=== PATIENT | female | born 1990 | race Hispanic/Latino ===

== ENCOUNTER 2019-10-08 05:50 | Day surgery (SDC) | payer OTHER ==
[2019-10-07 11:59] LABS: BASOPHILS % (AUTO) 0.2 % (0.0-5.0); HEMATOCRIT 45.2 % (36-48); LYMPHOCYTES % (AUTO) 10.9 % (21.0-51.0); MEAN CORPUSCULAR HEMOGLOBIN 26.3 pg (27.0-33.0); MEAN CORPUSCULAR HGB CONC 32.3 g/dL (32.0-36.0); MEAN CORPUSCULAR VOLUME 81.3 fL (79-99); MONOCYTES % (AUTO) 8.7 % (3.0-13.0); NEUTROPHILS % (AUTO) 77.9 % (40.0-77.0); PLATELET COUNT (AUTO) 225 K/uL (130-400); RED BLOOD CELL COUNT(AUTO) 5.56 MIL/uL (4.00-5.50); RED CELL DISTRIBUTION WIDTH 13.9 % (11.0-15.5); WHITE BLOOD COUNT (AUTO) 9.5 K/uL (4.8-10.8)
[2019-10-07 12:04] VITALS: BP 122/67
[2019-10-07 12:07] LABS: CREATININE 0.8 mg/dL (0.5-1.5); POTASSIUM 3.8 mmol/L (3.5-5.1)
[2019-10-07 12:12] LABS: INR 1.01 (0.85-1.15); PARTIAL THROMBOPLASTIN TIME 29.6 SEC (26.3-35.5); PROTHROMBIN TIME 10.6 SEC (9.6-11.6)
[2019-10-08] VITALS (24 sets, daily range): BP systolic 99–142; BP diastolic 43–89
[~2019-10-08] VITALS: Ht 167.6 cm; Wt 147.4 kg
[~2019-10-08 05:50] MED LIST: ASPI-555 PO; CETI-109 PO; CHOL500062 PO; ERGO500014 PO; FLUT16H NASAL; GABA-531 PO; IBUP-2077 PO; LORA10CA PO; SODIUM CHLORIDE 0.9% 1000ML 1,000 ML IV SCH
[2019-10-08] MEDS ORDERED: LIDOCAINE HCL 2% VISCOUS 15 ML UDCUP ONE (06:45)
[2019-10-08] MEDS ORDERED: LORA10TA7 PO (07:01)
[2019-10-08] MEDS ORDERED: DICY20TA11 PO (07:01)
[2019-10-08] MEDS ORDERED: GABA-531 PO (07:01)
[2019-10-08] MEDS ORDERED: POT CHLORIDE PO (07:01)
[2019-10-08] MEDS ORDERED: FURO40TA5 PO (07:01)
[2019-10-08] MEDS ORDERED: MONT10TA24 PO (07:01)
[2019-10-08] MEDS ORDERED: FLUO20CA34 PO (07:01)
[2019-10-08] MEDS ORDERED: ALPR0.5T8 PO (07:03)
[2019-10-08] MEDS ORDERED: ACET1TAB12 PO (07:03)
[2019-10-08] MEDS ORDERED: HYDR200T4 PO (07:08)
[2019-10-08] MEDS ORDERED: MIDAZOLAM HCL 1 MG/ML 2ML VIAL ONE (07:23)
[2019-10-08] MEDS ORDERED: FENTANYL CITRATE PF 50 MCG/1 ML 2ML VIAL ONE ×2 (07:24→07:25)
--- NOTE | 2019-10-08 07:41 | NUR ---
LATE ENTRY - PROCEDURE STARTED AT 0741 TIME OUT CALLED OUT,NO DISCREPANCY, PT TOLERATED WELL. END TIME WAS 0820- VITALS SIGNS AND MAR INDICATED.
== END 2019-10-08 10:22 | disposition home or self-care (01) ==
LOC: DAH 05:50
PROVIDERS: ATTEND Internal Medicine Cardiovascular Disease
DX: I34.0 Nonrheumatic mitral (valve) insufficiency (principal); I36.1 Nonrheumatic tricuspid (valve) insufficiency; M32.9 Systemic lupus erythematosus, unspecified; Z88.0 Allergy status to penicillin; Z79.82 Long term (current) use of aspirin; Z79.899 Other long term (current) drug therapy; Z90.49 Acquired absence of other specified parts of digestive tract
CPT/HCPCS: 36415; 80048; 84703; 85025; 85610; 85730; 93312; 93325; A4215; A4216; A4221; A4222; A4223 ×3; A4606; A4663; J2250; J3010 ×2; J7030; 93313; 99152; 99153

== ENCOUNTER → 2023-05-14 | Outpatient (CLI) | payer OTHER ==
[~2023-05-14] MED LIST changes: +ACET1TAB12 PO; +ALPR0.5T8 PO; -ASPI-555 PO; -CETI-109 PO; +DICY20TA3 PO; -ERGO500014 PO; +ERGO500093 PO; +FLUO20CA36 PO; +FURO40TA5 PO; +HYDR200T75 PO; -IBUP-2077 PO; +MONT-39 PO; +POT CHLORIDE PO; -SODIUM CHLORIDE 0.9% 1000ML 1,000 ML IV SCH
== END | disposition home or self-care (01) ==
LOC: RAH 09:47
PROVIDERS: ATTEND Internal Medicine
DX: K21.9 Gastro-esophageal reflux disease without esophagitis (principal); R11.2 Nausea with vomiting, unspecified; R10.10 Upper abdominal pain, unspecified
CPT/HCPCS: 74240

== ENCOUNTER → 2023-05-25 | Outpatient (CLI) | payer OTHER ==
[2023-05-25 12:26] LABS: BASOPHILS # (AUTO) 0.03 K/uL (0.00-0.20); BASOPHILS % (AUTO) 0.5 % (0.0-5.0); EOSINOPHILS # (AUTO) 0.09 K/uL (0.00-0.70); EOSINOPHILS % (AUTO) 1.6 % (0.0-8.0); HEMATOCRIT 43.5 % (36-48); IMMATURE GRANULOCYTE ABSOLUTE 0.01 K/uL (0-1); LYMPHOCYTES # (AUTO) 1.2 K/uL (1.0-4.8); LYMPHOCYTES % (AUTO) 22.1 % (21.0-51.0); MEAN CORPUSCULAR HGB CONC 31.7 g/dL (32.0-36.0); MEAN CORPUSCULAR VOLUME 78.7 fL (79-99); MONOCYTES # (AUTO) 0.5 K/uL (0.1-1.0); MONOCYTES % (AUTO) 9.7 % (3.0-13.0); NEUTROPHILS # (AUTO) 3.7 K/uL (1.8-7.7); NEUTROPHILS % (AUTO) 65.9 % (40.0-77.0); PLATELET COUNT (AUTO) 217 K/uL (130-400); RED BLOOD CELL COUNT(AUTO) 5.53 MIL/uL (4.00-5.50); RED CELL DISTRIBUTION WIDTH 16.6 % (11.0-15.5); WHITE BLOOD COUNT (AUTO) 5.6 K/uL (4.8-10.8)
[2023-05-25 12:41] LABS: CREATININE 0.7 mg/dL (0.5-1.5)
== END | disposition home or self-care (01) ==
LOC: LAB 09:12
PROVIDERS: ATTEND Internal Medicine Cardiovascular Disease
DX: R20.2 Paresthesia of skin (principal); R06.00 Dyspnea, unspecified; R00.2 Palpitations; R06.02 Shortness of breath; R06.4 Hyperventilation; M32.9 Systemic lupus erythematosus, unspecified; Z79.82 Long term (current) use of aspirin; Z79.899 Other long term (current) drug therapy
CPT/HCPCS: 36415; 80048; 80061; 85025